=== PATIENT | female | born 2000 | race Caucasian/White ===

== ENCOUNTER 2019-04-15 15:57 | Emergency (ER) | payer OTHER ==
[~2019-04-15] VITALS: Ht 152.4 cm; Wt 42.6 kg
== END 2019-04-15 18:29 | disposition home or self-care (01) ==
LOC: ER 15:57
DX: N76.4 Abscess of vulva (principal)

== ENCOUNTER 2023-04-06 11:14 | Emergency (ER) | payer OTHER ==
[~2023-04-06] VITALS: Ht 152.4 cm; Wt 43.5 kg
== END 2023-04-06 13:52 | disposition home or self-care (01) ==
LOC: ER 11:14
DX: M62.830 Muscle spasm of back (principal); Z91.018 Allergy to other foods